=== PATIENT | female | born 1950 | race Caucasian/White ===

== ENCOUNTER 2016-12-24 08:00 | Outpatient (CLI) | payer MEDICARE ==
[2016-12-24 19:31] LABS: BUN - BLOOD UREA NITROGEN 18 mg/dL (6-20); CALCIUM 9.2 mg/dL (8.5-10.3); CARBON DIOXIDE - CO2 27 mmol/L (21-32); CHLORIDE 104 mmol/L (101-111); CHOL/HDL RATIO 4.4 (<4.4); CHOLESTEROL 200 mg/dL; CREATININE 0.6 mg/dL (0.4-1.0); GFR - MDRD 100 (>89); GLUCOSE 88 mg/dL (70-100); HDL CHOLESTEROL 45 mg/dL; LDL/HDL RATIO 2.7 (<4.4); POTASSIUM 3.9 mmol/L (3.5-5.0); SODIUM 139 mmol/L (135-145); TRIGLYCERIDES 162 mg/dL; VLDL CHOLESTEROL 32 mg/dL
== END 2016-12-24 08:01 ==
LOC: LAB.F 08:00
PROVIDERS: ATTEND Physician Assistant
DX: I50.9 Heart failure, unspecified (principal); E78.5 Hyperlipidemia, unspecified; I35.0 Nonrheumatic aortic (valve) stenosis
CPT/HCPCS: 36415; 80048; 80061; 83880

== ENCOUNTER 2017-04-25 08:14 | Outpatient (CLI) | payer MEDICARE ==
[2017-04-25 11:24] LABS: CALCIUM 9.5 mg/dL (8.5-10.3); CREATININE 0.7 mg/dL (0.4-1.0)
== END 2017-04-25 08:15 | disposition home or self-care (01) ==
LOC: LAB.F 08:14
PROVIDERS: ATTEND Physician Assistant
DX: I50.9 Heart failure, unspecified (principal)
CPT/HCPCS: 36415; 80048; 83880

== ENCOUNTER 2017-07-29 15:26 | Emergency (ER) | payer MEDICARE ==
[2017-07-29 15:39] VITALS: BP 165/90
--- NOTE | 2017-07-29 16:44 | ED Physician Documentation ---
PD HPI DYSPNEA - Stated complaint Stated Complaint: SOA - Chief complaint Chief Complaint: Resp - History obtained from History obtained from: Patient - History of Present Illness Timing - onset: How many days ago (several) Timing - onset during: Light activity Timing - duration: Days Timing - details: Gradual onset, Still present Inciting event(s): URI (cough, congestion, sputum production and feeling malaise ). No: Out of meds Worsened by: Exertion, Coughing. No: Laying flat Associated symptoms: Fever, Cough, Wheezing. No: Hemoptysis, Chest pain / discomfort, Palpitations, Bilateral edema Similar symptoms before: Diagnosis (has had CHF and pneumonia in the past.) Recently seen: Not recently seen Review of Systems Constitutional: reports: Fever, Chills, Myalgias Nose: reports: Congestion. denies: Rhinorrhea / runny nose Throat: denies: Sore throat Cardiac: denies: Chest pain / pressure Respiratory: reports: Dyspnea, Cough, Wheezing GI: reports: Nausea. denies: Abdominal Pain, Vomiting, Diarrhea : denies: Dysuria, Frequency Skin: denies: Rash, Lesions Musculoskeletal: denies: Extremity swelling Neurologic: reports: Generalized weakness. 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 : None HEENT: None, Chronic vision loss Psych: None Musculoskeletal: None Derm: None - Past Surgical History Past Surgical History: Yes - Present Medications Home Medications: Ambulatory Orders Medication Instructions Recorded Confirmed Albuterol Sulf [Ventolin Hfa 1 - 2 puffs INH Q4HR PRN #1 inhaler 07/29/17 Inhaler] Azithromycin [Zithromax] 250 mg PO DAILY #6 tablet 07/29/17 Benzonatate [Tessalon] 100 mg PO TID PRN #25 capsule 07/29/17 Dexamethasone [Decadron] 4 mg PO DAILY #5 tablet 07/29/17 Furosemide [Lasix] 20 mg PO DAILY 07/29/17 07/29/17 Potassium Chloride 30 meq PO DAILY 07/29/17 07/29/17 - Allergies Allergies/Adverse Reactions: Allergies Allergy/AdvReac Type Severity Reaction Status Date / Time Sulfa (Sulfonamide Allergy Unknown Verified 01/26/16 12:24 Antibiotics) - Social History Does the pt smoke?: No Smoking Status: Never smoker Does the pt drink ETOH?: No Does the pt have substance abuse?: No - Family History Family history: reports: Non contributory - Immunizations Immunizations are current?: Yes - POLST Patient has POLST: No PD ED PE NORMAL - Vitals Vital signs reviewed: Yes - General General: Alert and oriented X 3, No acute distress, Well developed/nourished - HEENT HEENT: Ears normal, Pharynx benign - Neck Neck: Supple, no meningeal sign, No adenopathy - Cardiac Cardiac: RRR, No murmur - Respiratory Respiratory: No: Clear bilaterally (some diffuse wheezing. Mild coarse sounds perihilar. No fine rales heard. ) - Abdomen Abdomen: Soft, Non tender - Back Back: No CVA TTP - Derm Derm: Normal color, Warm and dry - Extremities Extremities: No tenderness to palpate, Normal ROM s pain, No calf tenderness / cord - Neuro Neuro: Alert and oriented X 3, No motor deficit, Normal speech Results - Vitals Vitals: Oxygen O2 Source Room air - Labs Labs: Laboratory Tests 07/29/17 07/29/17 07/29/17 16:45 17:32 17:32 WBC 10.3 RBC 5.45 H Hgb 15.7 Hct 45.8 MCV 84.1 MCH 28.8 MCHC 34.2 RDW 12.5 Plt Count 294 MPV 7.6 L Neut # 6.2 Lymph # 2.8 Yates # 0.7 Eos # 0.5 Baso # 0.1 Absolute Nucleated RBC 0.00 Nucleated RBCs 0.0 Sodium 136 Potassium 4.3 Chloride 100 L Carbon Dioxide 27 Anion Gap 9.0 BUN 17 Creatinine 0.6 Estimated GFR (MDRD) 100 Glucose 116 H Calcium 9.5 Magnesium 2.1 Total Bilirubin 0.8 AST 25 ALT 21 Alkaline Phosphatase 78 B-Natriuretic Peptide Total Protein 8.2 Albumin 5.3 Globulin 2.9 Albumin/Globulin Ratio 1.8 Lipase 40 Urine Color YELLOW Urine Clarity CLEAR Urine pH 5.5 Ur Specific [place] 1.020 Urine Protein NEGATIVE Urine Glucose (UA) NEGATIVE Urine Ketones NEGATIVE Urine Occult Blood NEGATIVE Urine Nitrite NEGATIVE Urine Bilirubin NEGATIVE Urine Urobilinogen 0.2 (NORMAL) Ur Leukocyte Esterase NEGATIVE Ur Microscopic Review NOT INDICATED Urine Culture Comments NOT INDICATED 07/29/17 17:32 WBC RBC Hgb Hct MCV MCH MCHC RDW Plt Count MPV Neut # Lymph # Yates # Eos # Baso # Absolute Nucleated RBC Nucleated RBCs Sodium Potassium Chloride Carbon Dioxide Anion Gap BUN Creatinine Estimated GFR (MDRD) Glucose Calcium Magnesium Total Bilirubin AST ALT Alkaline Phosphatase B-Natriuretic Peptide 130 H Total Protein Albumin Globulin Albumin/Globulin Ratio Lipase Urine Color Urine Clarity Urine pH Ur Specific [place] Urine Protein Urine Glucose (UA) Urine Ketones Urine Occult Blood Urine Nitrite Urine Bilirubin Urine Urobilinogen Ur Leukocyte Esterase Ur Microscopic Review Urine Culture Comments - Rads (name of study) chest Radiology: Prelim report reviewed (subtle infiltrate on left, with underlying lung disease) PD MEDICAL DECISION MAKING - ED course Complexity details: reviewed results, considered differential (sounds pneumonic and does not appear like CHF. ), d/w patient Departure - Departure Disposition: 01 Home, Self Care Clinical Impression: Dyspnea Qualifiers: Dyspnea type: dyspnea on exertion Qualified Code(s): R06.09 - Other forms of dyspnea Pneumonia Qualifiers: Pneumonia type: due to unspecified organism Laterality: left Lung location: upper lobe of lung Qualified Code(s): J18.1 - Lobar pneumonia, unspecified organism Condition: Stable Record reviewed to determine appropriate education?: Yes Instructions: ED Pneumonia Adult, ED Dyspnea Shortness of Breath Follow-Up: Ninoska Rasheed PA-C [Primary Care Provider] - Prescriptions: Albuterol Sulf [Ventolin Hfa Inhaler] 1 - 2 puffs INH Q4HR PRN #1 inhaler PRN Reason: Shortness Of Air/Wheezing Dexamethasone [Decadron] 4 mg PO DAILY #5 tablet Benzonatate [Tessalon] 100 mg PO TID PRN #25 capsule PRN Reason: Cough Azithromycin [Zithromax] 250 mg PO DAILY #6 tablet Comments: Use the albuterol inhaler 2 puffs 4 times a day for the next 7-10 days. Decadron daily for 5 more days for bronchial inflammation. Zithromax antibiotic for bronchitis/pneumonia. Use Tessalon if needed for cough. Drink lots of fluids. Continue with usual medicines. There does not appear to be any signs of congestive failure at this time. It seems to be all respiratory and infectious. Discharge Date/Time: 07/29/17 18:23
[2017-07-29 16:58] LABS: BILIRUBIN,URINE NEGATIVE (NEGATIVE); PH,URINE 5.5 PH (5.0-7.5); UA CHARGE (STRIP ONLY) YES; UR CULTURE IF IND NOT INDICATED
[2017-07-29] MEDS ORDERED: ALBUTEROL NEB 2.5 MG/3 ML INH STA (17:07)
[2017-07-29] MEDS ORDERED: DEXAMETHASONE 10 MG/ML VIAL PO STA (17:07)
[2017-07-29] MEDS ORDERED: DEXAMETHASONE 10 MG/ML VIAL ONE (17:15)
[2017-07-29] MEDS ORDERED: CHERRY SYRUP 10 ML UDC PO ONE (17:16)
[2017-07-29] MEDS ORDERED: ALBUTEROL NEB 2.5 MG/3 ML INH ONE (17:38)
--- NOTE | 2017-07-29 17:40 | XRAY Preliminary Report ---
Exam: XR Chest 2 View PA/LAT IMPRESSION: Possible subtle infiltrate on the left, with underlying chronic lung disease. [facility] SITE ID: [id number]
[2017-07-29 17:42] LABS: BASOPHILS # (AUTO) 0.1 10^3/uL (0.0-0.1); BASOPHILS % (AUTO) 1.1 %; EOSINOPHILS # (AUTO) 0.5 10^3/uL (0.0-0.7); EOSINOPHILS % (AUTO) 4.6 %; HCT - HEMATOCRIT 45.8 % (37.0-47.0); HGB - HEMOGLOBIN 15.7 g/dL (12.0-16.0); LYMPHOCYTES # (AUTO) 2.8 10^3/uL (1.5-3.5); LYMPHOCYTES % (AUTO) 27.5 %; MEAN CORPUSCULAR HEMOGLOBIN 28.8 pg (27.0-31.0); MEAN CORPUSCULAR HGB CONC 34.2 g/dL (32.0-36.0); MEAN CORPUSCULAR VOLUME 84.1 fL (81.0-99.0); MEAN PLATELET VOLUME 7.6 fL (7.9-10.8); MONOCYTES # (AUTO) 0.7 10^3/uL (0.0-1.0); MONOCYTES % (AUTO) 6.8 %; NEUTROPHILS # (AUTO) 6.2 10^3/uL (1.5-6.6); RED BLOOD COUNT 5.45 10^6/uL (4.20-5.40); RED CELL DISTRIBUTION WIDTH 12.5 % (12.0-15.0); UNCORRECTED WHITE BLOOD COUNT 10.3 x10^3/uL; WHITE BLOOD COUNT 10.3 x10^3/uL (4.8-10.8)
--- NOTE | 2017-07-29 17:43 | XRAY Report ---
EXAM: CHEST RADIOGRAPHY EXAM DATE: 07/29/2017 05:24 PM. CLINICAL HISTORY: Cough and wheezing/dyspnea for 1-2 weeks. COMPARISON: 04/20/2016. TECHNIQUE: 2 views. FINDINGS: Lungs/Pleura: Hyperexpanded with flattened diaphragm and coarse lung markings typical of COPD. Subtle increased density in left midlung zone may represent an acute infiltrate. No consolidation, effusion , or pneumothorax. Mediastinum: Normal heart size, unchanged. Upper lobe vessels not distended. Other: Scoliosis, degenerative changes. IMPRESSION: Possible subtle infiltrate on the left, with underlying chronic lung disease. [facility] Referring Provider Line: [phone] SITE ID: [id number]
[2017-07-29] MEDS ORDERED: AZITHROMYCIN 250 MG TABLET PO STA (17:50)
[2017-07-29] MEDS ORDERED: BENZONATATE 100 MG CAPSULE PO STA (17:51)
[2017-07-29 17:53] LABS: ALBUMIN/GLOBULIN RATIO 1.8 (1.0-2.2); BILIRUBIN,TOTAL 0.8 mg/dL (0.2-1.0); CALCIUM 9.5 mg/dL (8.5-10.3); CREATININE 0.6 mg/dL (0.4-1.0); MAGNESIUM 2.1 mg/dL (1.7-2.8); POTASSIUM 4.3 mmol/L (3.5-5.0); TOTAL PROTEIN 8.2 g/dL (6.7-8.2)
[2017-07-29] MEDS ORDERED: AZITHROMYCIN 250 MG TABLET PO ONE (18:12)
[2017-07-29] MEDS ORDERED: BENZONATATE 100 MG CAPSULE PO ONE (18:12)
== END 2017-07-29 18:23 | disposition home or self-care (01) ==
LOC: ED 15:26
DX: R06.00 Dyspnea, unspecified (principal); J18.9 Pneumonia, unspecified organism; I10 Essential (primary) hypertension
CPT/HCPCS: 36415; 71020; 80053; 81003; 83690; 83735; 83880; 85025; 94640; 99283; 99284; A9270; J7613; 81001; 87086

== ENCOUNTER 2017-09-26 14:58 | Outpatient (CLI) | payer MEDICARE | END 2017-09-26 14:59 | disposition home or self-care (01) | LOC: RT 14:58 | PROVIDERS: ATTEND Internal Medicine Cardiovascular Disease | DX: I35.0 Nonrheumatic aortic (valve) stenosis (principal) | CPT/HCPCS: 93005 ==

== ENCOUNTER 2017-09-26 15:18 | Outpatient (CLI) | payer MEDICARE ==
[2017-09-26 15:41] LABS: BASOPHILS # (AUTO) 0.1 10^3/uL (0.0-0.1); BASOPHILS % (AUTO) 1.1 %; EOSINOPHILS # (AUTO) 0.3 10^3/uL (0.0-0.7); EOSINOPHILS % (AUTO) 4.2 %; HCT - HEMATOCRIT 42.2 % (37.0-47.0); HGB - HEMOGLOBIN 14.4 g/dL (12.0-16.0); LYMPHOCYTES # (AUTO) 2.4 10^3/uL (1.5-3.5); LYMPHOCYTES % (AUTO) 31.4 %; MEAN CORPUSCULAR HEMOGLOBIN 28.8 pg (27.0-31.0); MEAN CORPUSCULAR HGB CONC 34.1 g/dL (32.0-36.0); MEAN CORPUSCULAR VOLUME 84.4 fL (81.0-99.0); MEAN PLATELET VOLUME 7.3 fL (7.9-10.8); MONOCYTES # (AUTO) 0.5 10^3/uL (0.0-1.0); MONOCYTES % (AUTO) 6.2 %; NEUTROPHILS # (AUTO) 4.4 10^3/uL (1.5-6.6); NEUTROPHILS % (AUTO) 57.1 %; RED CELL DISTRIBUTION WIDTH 12.5 % (12.0-15.0); UNCORRECTED WHITE BLOOD COUNT 7.7 x10^3/uL; WHITE BLOOD COUNT 7.7 x10^3/uL (4.8-10.8)
[2017-09-26 15:53] LABS: INR 1.1 (0.8-1.2)
[2017-09-26 15:54] LABS: ALBUMIN/GLOBULIN RATIO 1.7 (1.0-2.2); BILIRUBIN,TOTAL 0.4 mg/dL (0.2-1.0); CREATININE 0.9 mg/dL (0.4-1.0); TOTAL PROTEIN 7.3 g/dL (6.7-8.2)
== END 2017-09-26 15:19 | disposition home or self-care (01) ==
LOC: LAB 15:18
PROVIDERS: ATTEND Internal Medicine Cardiovascular Disease
DX: Z01.810 Encounter for preprocedural cardiovascular examination (principal); I35.0 Nonrheumatic aortic (valve) stenosis
CPT/HCPCS: 36415; 80053; 85025; 85610; 93005

== ENCOUNTER 2017-10-01 11:05 | Outpatient (CLI) | payer MEDICARE, MEDICAID | END 2017-10-01 11:06 | disposition home or self-care (01) | LOC: DI 11:05 | PROVIDERS: ATTEND Internal Medicine Cardiovascular Disease | DX: I35.0 Nonrheumatic aortic (valve) stenosis (principal); I51.7 Cardiomegaly | CPT/HCPCS: 93306 ==

== ENCOUNTER 2017-12-12 15:26 | Outpatient (CLI) | payer MEDICARE, MEDICAID | END 2017-12-12 15:27 | disposition home or self-care (01) | LOC: LAB 15:26 | PROVIDERS: ATTEND Nurse Practitioner Adult Health | DX: I35.0 Nonrheumatic aortic (valve) stenosis (principal) | CPT/HCPCS: 87640 ==

== ENCOUNTER 2018-01-14 12:47 | Outpatient (CLI) | payer MEDICARE, MEDICAID | END 2018-01-14 12:48 | disposition home or self-care (01) | LOC: DI 12:47 | PROVIDERS: ATTEND Internal Medicine Cardiovascular Disease | DX: I08.3 Combined rheumatic disorders of mitral, aortic and tricuspid valves (principal); I51.7 Cardiomegaly; T82.897A Other specified complication of cardiac prosthetic devices, implants and grafts, initial encounter; I31.3 Pericardial effusion (noninflammatory); J90 Pleural effusion, not elsewhere classified | CPT/HCPCS: 93306 ==

== ENCOUNTER 2018-04-10 14:43 | Emergency (ER) | payer MEDICARE, MEDICAID ==
[2018-04-10 14:51] VITALS: BP 155/71
--- NOTE | 2018-04-10 14:58 | ED Physician Documentation ---
PD HPI HEENT - Stated complaint Stated Complaint: MOUTH SORES - Chief complaint Chief Complaint: Heent - History obtained from History obtained from: Patient - History of Present Illness Timing - onset: Yesterday (She was eating a hamburger yesterday and felt something sharp and cut her tongue and she has had intermittent bleeding ever since. She has specific concerns about this affecting her heart surgery from a few months ago. 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 : None HEENT: None, Chronic vision loss Psych: None Musculoskeletal: None Derm: None - Past Surgical History Past Surgical History: Yes - Present Medications Home Medications: Ambulatory Orders Medication Instructions Recorded Confirmed Albuterol Sulf [Ventolin Hfa 1 - 2 puffs INH Q4HR PRN #1 inhaler 07/29/17 Inhaler] Azithromycin [Zithromax] 250 mg PO DAILY #6 tablet 07/29/17 Benzonatate [Tessalon] 100 mg PO TID PRN #25 capsule 07/29/17 Dexamethasone [Decadron] 4 mg PO DAILY #5 tablet 07/29/17 Furosemide [Lasix] 20 mg PO DAILY 07/29/17 07/29/17 Potassium Chloride 30 meq PO DAILY 07/29/17 07/29/17 - Allergies Allergies/Adverse Reactions: Allergies Allergy/AdvReac Type Severity Reaction Status Date / Time Sulfa (Sulfonamide Allergy Unknown Verified 04/10/18 14:51 Antibiotics) - Social History Does the pt smoke?: No Smoking Status: Never smoker Does the pt drink ETOH?: No Does the pt have substance abuse?: No - Immunizations Immunizations are current?: Yes - POLST Patient has POLST: No PD ED PE NORMAL - Vitals Vital signs reviewed: Yes - General General: Alert and oriented X 3, No acute distress - HEENT HEENT: PERRL, EOMI, Other (There is a single visible tiny laceration on the top right of the tongue with its which is hemostatic. No other visible oropharyngeal lesions.) - Neck Neck: Supple, no meningeal sign, No bony TTP - Cardiac Cardiac: RRR, No murmur - Respiratory Respiratory: No respiratory distress, Clear bilaterally - Abdomen Abdomen: Non tender - Neuro Neuro: Alert and oriented X 3, Normal speech Results - Vitals Vitals: Vital Signs - 24 hr 04/10/18 14:48 Temperature 36.4 C L Heart Rate 83 Respiratory 16 Rate Blood Pressure 155/71 H O2 Saturation 98 Oxygen O2 Source Room air Departure - Departure Disposition: Home, Self Care Clinical Impression: Tongue laceration Qualifiers: Encounter type: initial encounter Qualified Code(s): S01.512A - Laceration without foreign body of oral cavity, initial encounter Condition: Good Record reviewed to determine appropriate education?: Yes Instructions: ED Avulsion Dermal
== END 2018-04-10 15:17 | disposition home or self-care (01) ==
LOC: ED 14:43
DX: S01.512A Laceration without foreign body of oral cavity, initial encounter (principal); W45.8XXA Other foreign body or object entering through skin, initial encounter; I10 Essential (primary) hypertension
CPT/HCPCS: 99282

== ENCOUNTER 2018-04-15 09:50 | Outpatient (CLI) | payer MEDICARE, MEDICAID ==
[2018-04-15 17:49] LABS: BASOPHILS # (AUTO) 0.1 10^3/uL (0.0-0.1); BASOPHILS % (AUTO) 1.2 %; EOSINOPHILS # (AUTO) 0.3 10^3/uL (0.0-0.7); EOSINOPHILS % (AUTO) 4.6 %; HGB - HEMOGLOBIN 12.3 g/dL (12.0-16.0); LYMPHOCYTES # (AUTO) 2.2 10^3/uL (1.5-3.5); LYMPHOCYTES % (AUTO) 40.1 %; MEAN CORPUSCULAR HEMOGLOBIN 27.6 pg (27.0-31.0); MEAN CORPUSCULAR VOLUME 83.5 fL (81.0-99.0); MONOCYTES # (AUTO) 0.3 10^3/uL (0.0-1.0); MONOCYTES % (AUTO) 5.7 %; NEUTROPHILS # (AUTO) 2.7 10^3/uL (1.5-6.6); NEUTROPHILS % (AUTO) 48.4 %; PLT - PLATELET COUNT 411 10^3/uL (130-450); RED BLOOD COUNT 4.46 10^6/uL (4.20-5.40); RED CELL DISTRIBUTION WIDTH 14.3 % (12.0-15.0); WHITE BLOOD COUNT 5.5 x10^3/uL (4.8-10.8)
== END 2018-04-15 09:51 | disposition home or self-care (01) ==
LOC: LAB.F 09:50
PROVIDERS: ATTEND Physician Assistant Medical
DX: Z86.2 Personal history of diseases of the blood and blood-forming organs and certain disorders involving the immune mechanism (principal)
CPT/HCPCS: 36415; 85025

== ENCOUNTER 2018-04-25 09:43 | Outpatient (CLI) | payer MEDICARE, MEDICAID ==
[2018-04-25 10:08] LABS: ALBUMIN 4.2 g/dL (3.2-5.5); ALBUMIN/GLOBULIN RATIO 1.3 (1.0-2.2); BILIRUBIN,TOTAL 0.6 mg/dL (0.2-1.0); CALCIUM 9.5 mg/dL (8.5-10.3); CREATININE 0.7 mg/dL (0.4-1.0); TOTAL PROTEIN 7.4 g/dL (6.7-8.2)
== END 2018-04-25 09:44 | disposition home or self-care (01) ==
LOC: LAB 09:43
PROVIDERS: ATTEND Physician Assistant Medical
DX: Z51.81 Encounter for therapeutic drug level monitoring (principal)
CPT/HCPCS: 36415; 80053

== ENCOUNTER 2018-06-02 10:18 | Outpatient (CLI) | payer MEDICARE, MEDICAID | END 2018-06-02 10:19 | disposition home or self-care (01) | LOC: DI 10:18 | PROVIDERS: ATTEND Internal Medicine Cardiovascular Disease | DX: R93.1 Abnormal findings on diagnostic imaging of heart and coronary circulation (principal); I08.0 Rheumatic disorders of both mitral and aortic valves | CPT/HCPCS: 93306 ==

== ENCOUNTER 2018-09-25 09:49 | Outpatient (CLI) | payer MEDICARE, MEDICAID ==
[2018-09-25 18:52] LABS: ALBUMIN 4.7 g/dL (3.2-5.5); ALKALINE PHOSPHATASE 73 IU/L (42-121); ALT ALANINE AMINOTRANSFERASE 17 IU/L (10-60); AST ASPARTATE AMINOTRANSFERASE 21 IU/L (10-42); BILIRUBIN,TOTAL 0.8 mg/dL (0.2-1.0); BUN - BLOOD UREA NITROGEN 19 mg/dL (6-20); CALCIUM 9.1 mg/dL (8.5-10.3); CARBON DIOXIDE - CO2 26 mmol/L (21-32); CHLORIDE 102 mmol/L (101-111); CHOL/HDL RATIO 4.4 (<4.4); CHOLESTEROL 217 mg/dL; CREATININE 0.6 mg/dL (0.4-1.0); GFR - MDRD 99 (>89); GLUCOSE 95 mg/dL (70-100); HDL CHOLESTEROL 49 mg/dL; LDL CHOLESTEROL,CALCULATED 135 mg/dL; LDL/HDL RATIO 2.8 (<4.4); SODIUM 135 mmol/L (135-145); TOTAL PROTEIN 7.1 g/dL (6.7-8.2); VLDL CHOLESTEROL 33 mg/dL
== END 2018-09-25 09:50 | disposition home or self-care (01) ==
LOC: LAB.F 09:49
PROVIDERS: ATTEND Physician Assistant Medical
DX: I50.9 Heart failure, unspecified (principal); E78.70 Disorder of bile acid and cholesterol metabolism, unspecified
CPT/HCPCS: 36415; 80053; 80061; 83721

== ENCOUNTER 2019-03-20 15:21 | Outpatient (CLI) | payer MEDICARE, MEDICAID | END 2019-03-20 15:22 | disposition home or self-care (01) | LOC: LAB.F 15:21 | PROVIDERS: ATTEND Physician Assistant Medical | DX: R53.83 Other fatigue (principal) | CPT/HCPCS: 36415; 84443 ==

== ENCOUNTER 2019-03-26 10:08 | Outpatient (CLI) | payer MEDICARE, MEDICAID ==
--- NOTE | 2019-03-26 13:54 | XRAY Report ---
Reason: HIP PAIN JOINT Procedure Date: 03/26/2019 Accession Number: [id number] / [id number] Procedure: XR - Hips 2V BILAT CPT Code: FULL RESULT: EXAM: BILATERAL HIP RADIOGRAPHY EXAM DATE: 03/26/2019 10:14 AM. CLINICAL HISTORY: Hip joint pain. COMPARISON: None. TECHNIQUE: 2 views each. FINDINGS: Bones: Normal. No fractures or bone lesion. Right Hip: Normal. No dislocation. The hip joint space is preserved. Left Hip: Normal. No dislocation. The hip joint space is preserved. Soft Tissues: Normal. No soft tissue swelling. IMPRESSION: Normal bilateral hip radiography. [facility]
== END 2019-03-26 10:09 | disposition home or self-care (01) ==
LOC: DI 10:08
PROVIDERS: ATTEND Physician Assistant Medical
DX: M25.559 Pain in unspecified hip (principal)
CPT/HCPCS: 73521

== ENCOUNTER 2019-12-31 13:16 | Emergency (ER) | payer MEDICARE, MEDICAID ==
--- NOTE | 2019-12-31 14:52 | ED Physician Documentation ---
History of Present Illness - Stated complaint Stated Complaint: MOUTH PX - Chief complaint Chief Complaint: Heent - History obtained from History obtained from: Patient, Family - History of Present Illness Timing: How many days ago (4) - Additonal information Additional information: Patient comes emergency department complaining of right throat/neck pain that is been going on for the last 4 days. Patient actually has had chronic right throat and neck pain for the last year and a half since having Replacement surgery. She states that after the surgery was done, she woke up hoarse and has had trouble with swallowing and speaking ever since. Her significant other states that no one has ever been able to figure out for sure why this is, though they thought she might of had a stroke during surgery. However, the patient never had any other symptoms with this. Patient states that over the last year and a half, her throat pain has come and gone. She states however that this seems to be worse than usual. She denies any fevers or chills. No rhinorrhea or cough. She has a history of intermittent acid reflux but this is not been bothering her recently. She states that she did not sleep very well last night because of the pain. Patient states that she is supposed to follow-up with ENT, but she has not been able to get a referral from her primary care physician yet. At this point in time, she is expected to be seen at the end of February by ENT.The only other history the patient can think of is that some months ago, she accidentally swallowed some glass and at that time, had medical evaluation.She was found to have a piece of glass in her stomach and was told that this would pass on its own. She wonders if a piece of glass got lodged in her throat and has never quite cleared since. Patient denies any difficulty breathing. No gagging.She does not feel ill. No other complaints at this time. 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 : None HEENT: None, Chronic vision loss Psych: None Musculoskeletal: None Derm: None - Past Surgical History Past Surgical History: Yes - Present Medications Home Medications: Ambulatory Orders Medication Instructions Recorded Confirmed Albuterol Sulf [Ventolin Hfa 1 - 2 puffs INH Q4HR PRN #1 inhaler 07/29/17 Inhaler] Azithromycin [Zithromax] 250 mg PO DAILY #6 tablet 07/29/17 Benzonatate [Tessalon] 100 mg PO TID PRN #25 capsule 07/29/17 Furosemide [Lasix] 20 mg PO DAILY 07/29/17 07/29/17 Potassium Chloride 30 meq PO DAILY 07/29/17 07/29/17 dexAMETHasone [Decadron] 4 mg PO DAILY #5 tablet 07/29/17 Lidocaine HCl [Lidocaine HCl 5 ml MM Q8HR 10 Days #100 ml 12/31/19 Viscous] - Allergies Allergies/Adverse Reactions: Allergies Allergy/AdvReac Type Severity Reaction Status Date / Time Sulfa (Sulfonamide Allergy Unknown Verified 04/10/18 14:51 Antibiotics) - Social History Does the pt smoke?: No Smoking Status: Never smoker Does the pt drink ETOH?: No Does the pt have substance abuse?: No - Immunizations Immunizations are current?: Yes - POLST Patient has POLST: No Results - Vitals Vitals: Vital Signs - 24 hr 12/31/19 12/31/19 13:19 16:17 Temperature 36.5 C 37.1 C Heart Rate 61 68 Respiratory 18 16 Rate Blood Pressure 152/70 H 141/72 H O2 Saturation 97 98 Oxygen O2 Source Room air - Rads (name of study) Soft tissue neck x-ray Radiology: Final report received, Discussed with rads, See rad report (Negative soft tissue neck x-ray.) PD MEDICAL DECISION MAKING - ED course Complexity details: reviewed old records, reviewed results, re-evaluated patient, considered differential, d/w patient, d/w family ED course: I discussed with the patient and her family that at this point in time, she has chronicNeck and throat pain but I do not find evidence of an acute or emergent cause of her pain. She may have a viral illness that has caused an aphthous ulcer further down in her throat where he cannot see; however, it is not certain because I cannot see down that far. She has mild lymphadenopathy of the right neck, but this is not tender. At this point in time, I have discussed home management of the symptoms, as well as the need for follow-up with ENT, who can do a scope and get a better idea of what is going on. I do not feel she needs emergent ENT consultation in the emergency department. Patient seems stable for discharge home.We have discussed the usual indications for return. Departure - Departure Disposition: 01 Home, Self Care Clinical Impression: Sore throat, Odynophagia Condition: Good Instructions: Sore Throat Prescriptions: Lidocaine HCl [Lidocaine HCl Viscous] 5 ml MM Q8HR 10 Days #100 ml Comments: Your soft tissue neck x-ray was negative. It is not clear why you continue to have pain in your throat and neck. However, this is something that will need to be further evaluated by the ear nose throat specialist. Please continue to work with your primary care physician to get insurance authorization for your follow- up. In the meantime, eat soft foods and take the medication, as prescribed, and as needed. Discharge Date/Time: 12/31/19 16:19
--- NOTE | 2019-12-31 15:37 | XRAY Report ---
Reason: neck pain Procedure Date: 12/31/2019 Accession Number: [id number] / [id number] Procedure: XR - Neck Soft Tissue CPT Code: Final Report FULL RESULT: EXAM: SOFT TISSUE NECK RADIOGRAPHY EXAM DATE: 12/31/2019 03:17 PM. CLINICAL HISTORY: Neck pain. Patient reports neck pain/trouble swallowing for 4 days. COMPARISONS: None. TECHNIQUE: 2 views. FINDINGS: Soft Tissues: No prevertebral soft tissue swelling. The epiglottis and aryepiglottic folds are unremarkable. No tonsillar or adenoidal enlargement. No radiopaque foreign body. Regional Skeleton: Multilevel degenerative changes of the cervical spine are seen including loss of disk space height, facet arthropathy and lateral mass hypertrophy. Prior median sternotomy is noted. Other: The visualized lung apices are clear. IMPRESSION: No unexpected radiopaque foreign body of soft tissues. No unexpected soft tissue gas. Radiographically normal soft tissues. [facility]
[2019-12-31 16:17] VITALS: BP 141/72
== END 2019-12-31 16:19 | disposition home or self-care (01) ==
LOC: ED 13:16
DX: J02.9 Acute pharyngitis, unspecified (principal); R13.10 Dysphagia, unspecified; I10 Essential (primary) hypertension
CPT/HCPCS: 70360; 99281; 99283

== ENCOUNTER 2020-12-20 13:42 | Outpatient (CLI) | payer MEDICARE, MEDICAID ==
--- NOTE | 2020-12-20 14:48 | DEXA Report ---
PROCEDURE: Dexa Spine and/or Hip INDICATIONS: POST MENOPAUSAL TECHNIQUE: Dual energy x-ray absorptiometry (DXA) was performed on a [place]. com. cn System. Regions measur ed are the AP Spine, femoral neck, and if needed forearm. COMPARISON: None. FINDINGS: Lumbar Spine: Bone Mineral Density 0.976 g/cm/cm,T score -1.7, osteopenia Left Femoral Neck: Bone Mineral Density 0.673 g/cm/cm, T score -2.7, osteoporosis (T score greater or equal to -1.0: NORMAL) (T score from -1.1 to -2.4: OSTEOPENIA) (T score less than or equal to -2.5 to: OSTEOPOROSIS) Impression: OSTEOPOROSIS. Patient is at high risk for fracture. Patients with diagnosis of osteoporosis or osteopenia should have regular bone mineral density assess ment. For those eligible for Medicare, routine testing is allowed once every 2 years. Testing frequ ency can be increased for patients who have rapidly progressing disease or for those who are receivin g medical therapy to restore bone mass. Reviewed by: Jonathan Melton MD on 12/20/2020 2:46 PM PST Approved by: Jonathan Melton MD on 12/20/2020 2:46 PM PST Station ID: [id number]
== END 2020-12-20 13:43 | disposition home or self-care (01) ==
LOC: DI 13:42
PROVIDERS: ATTEND Registered Nurse
DX: M85.89 Other specified disorders of bone density and structure, multiple sites (principal); Z78.0 Asymptomatic menopausal state

== ENCOUNTER 2021-01-17 11:05 | Outpatient (CLI) | payer MEDICARE, MEDICAID ==
[2021-01-17 11:51] LABS: BASOPHILS % (AUTO) 0.6 %; EOSINOPHILS # (AUTO) 0.1 10^3/uL (0.0-0.7); EOSINOPHILS % (AUTO) 1.9 %; HCT - HEMATOCRIT 35.5 % (37.0-47.0); HGB - HEMOGLOBIN 11.9 g/dL (12.0-16.0); LYMPHOCYTES # (AUTO) 0.8 10^3/uL (1.5-3.5); LYMPHOCYTES % (AUTO) 24.5 %; MEAN CORPUSCULAR HEMOGLOBIN 30.7 pg (27.0-31.0); MEAN CORPUSCULAR HGB CONC 33.5 g/dL (32.0-36.0); MEAN CORPUSCULAR VOLUME 91.5 fL (81.0-99.0); MEAN PLATELET VOLUME 8.5 fL (7.9-10.8); MONOCYTES # (AUTO) 0.3 10^3/uL (0.0-1.0); MONOCYTES % (AUTO) 9.7 %; PLT - PLATELET COUNT 183 10^3/uL (130-450); RED BLOOD COUNT 3.88 10^6/uL (4.20-5.40); RED CELL DISTRIBUTION WIDTH 13.2 % (12.0-15.0); WHITE BLOOD COUNT 3.2 x10^3/uL (4.8-10.8)
[2021-01-17 12:07] LABS: ALBUMIN 5.2 g/dL (3.2-5.5); ALBUMIN/GLOBULIN RATIO 2.2 (1.0-2.2); ALKALINE PHOSPHATASE 54 IU/L (42-121); ALT ALANINE AMINOTRANSFERASE 30 IU/L (10-60); AST ASPARTATE AMINOTRANSFERASE 29 IU/L (10-42); BUN - BLOOD UREA NITROGEN 20 mg/dL (6-20); CALCIUM 9.9 mg/dL (8.5-10.3); CARBON DIOXIDE - CO2 27 mmol/L (21-32); CHLORIDE 95 mmol/L (101-111); CHOL/HDL RATIO 3.4 (<4.4); CHOLESTEROL 216 mg/dL; CREATININE 0.6 mg/dL (0.4-1.0); GFR - MDRD 99 (>89); GLUCOSE 101 mg/dL (70-100); HDL CHOLESTEROL 64 mg/dL; LDL CHOLESTEROL,CALCULATED 123 mg/dL; LDL/HDL RATIO 1.9 (<4.4); POTASSIUM 3.9 mmol/L (3.5-5.0); SODIUM 135 mmol/L (135-145); TOTAL PROTEIN 7.6 g/dL (6.7-8.2); TRIGLYCERIDES 145 mg/dL; VLDL CHOLESTEROL 29 mg/dL
[2021-01-17 12:19] LABS: THYROID STIMULATING HORMONE 7.49 uIU/mL (0.34-5.60)
[2021-01-17 12:54] LABS: FREE T4 (FREE THYROXINE) 0.87 ng/dL (0.58-1.64)
== END 2021-01-17 11:06 | disposition home or self-care (01) ==
LOC: LAB 11:05
PROVIDERS: ATTEND Registered Nurse
DX: C01 Malignant neoplasm of base of tongue (principal)
CPT/HCPCS: 36415; 80053; 80061; 83721; 84439; 84443; 85025

== ENCOUNTER 2021-01-30 16:39 | Outpatient (CLI) | payer MEDICARE, MEDICAID | END 2021-01-30 16:40 | disposition home or self-care (01) | LOC: COV 16:39 | PROVIDERS: ATTEND Specialist | DX: Z01.812 Encounter for preprocedural laboratory examination (principal); C01 Malignant neoplasm of base of tongue; Z20.822 Contact with and (suspected) exposure to COVID-19 ==

== ENCOUNTER 2021-02-14 10:12 | Outpatient (CLI) | payer MEDICARE, MEDICAID ==
--- NOTE | 2021-02-15 09:11 | Ultrasound Report ---
PROCEDURE: Head or Neck Soft Tissue INDICATIONS: NODULE IN THYROID TECHNIQUE: Real-time scanning was performed of the thyroid gland, with image documentation. COMPARISON: None. Correlation made to report of the PET CT 10/19/2020 FINDINGS: Right: Thyroid lobe measures 3.8 x 2.0 x 1.5 cm, and is heterogeneous in echotexture. Left: Thyroid lobe measures 3.6 x 1.4 x 1.5 cm, and is heterogeneous in echotexture. Isthmus: 3.6 mm thick. Nodule number: One Location: Left mid Size: 0.8 x 0.5 x 0.5 cm. Composition: Solid Echogenicity: Hyperechoic Shape: wider than tall. Margins: Smooth Echogenic foci: None Total points: 3 ACR TI-RADS category: Mildly suspicious Nodule number: Two Location: Left inferior Size: 1.2 x 1.0 x 1.0 cm. Composition: Solid Echogenicity: Hyperechoic Shape: wider than tall. Margins: Smooth Echogenic foci: None Total points: 3 ACR TI-RADS category: Mildly suspicious IMPRESSION: 1. Heterogeneous right thyroid lobe without focal nodule to explain FDG uptake. 2. 2 echogenic solid nodules in the left thyroid lobe are only mildly suspicious. Given their small s ize, no further follow-up is needed. ACR TI-RADS definitions and recommendations: TI-RADS 1 (benign): 0 points. FNA not needed. TI-RADS 2 (not suspicious): 2 points. FNA not needed. TI-RADS 3 (mildly suspicious): 3 points. ? FNA if 2.5 cm or larger, follow up if 1.5 cm or larger (at 1, 3, and 5 years). TI-RADS 4 (moderately suspicious): 4-6 points. ? FNA if 1.5 cm or larger, follow up if 1 cm or larger (at 1, 2, 3, and 5 years). TI-RADS 5 (highly suspicious): 7 points or more. ? FNA if 1 cm or larger, follow up if 0.5 cm or larger (every year for 5 years). Reviewed by: Eri Dumont MD on 02/15/2021 8:09 AM [facility] Approved by: Eri Dumont MD on 02/15/2021 8:09 AM [facility] Station ID: [id number]
== END 2021-02-14 10:13 | disposition home or self-care (01) ==
LOC: DI 10:12
PROVIDERS: ATTEND Specialist
DX: E04.2 Nontoxic multinodular goiter (principal)

== ENCOUNTER 2021-05-05 14:39 | Outpatient (CLI) | payer MEDICARE, MEDICAID | END 2021-05-05 14:40 | disposition home or self-care (01) | LOC: COV 14:39 | PROVIDERS: ATTEND Specialist | DX: Z01.812 Encounter for preprocedural laboratory examination (principal); C01 Malignant neoplasm of base of tongue; Z20.822 Contact with and (suspected) exposure to COVID-19 ==

== ENCOUNTER 2021-06-01 11:00 | Outpatient (CLI) | payer MEDICARE, MEDICAID | END 2021-06-01 23:59 | disposition home or self-care (01) | LOC: COV 11:00 | PROVIDERS: ATTEND Specialist | DX: Z01.812 Encounter for preprocedural laboratory examination (principal); C01 Malignant neoplasm of base of tongue; Z20.822 Contact with and (suspected) exposure to COVID-19 ==

== ENCOUNTER 2022-03-02 10:58 | Outpatient (CLI) | payer MEDICARE, MEDICAID ==
[2022-03-02 11:38] LABS: T4 (THYROXINE) 8.06 ug/dL (6.09-12.23)
[2022-03-02 11:41] LABS: THYROID STIMULATING HORMONE 1.04 uIU/mL (0.34-5.60)
== END 2022-03-02 10:59 | disposition home or self-care (01) ==
LOC: LAB 10:58
PROVIDERS: ATTEND Registered Nurse
DX: R94.6 Abnormal results of thyroid function studies (principal)
CPT/HCPCS: 36415; 84436; 84443; 84480

== ENCOUNTER 2022-04-06 08:00 | Outpatient (CLI) | payer MEDICARE, MEDICAID ==
[2022-04-06 20:49] LABS: T4 (THYROXINE) 6.94 ug/dL (6.09-12.23)
[2022-04-06 20:53] LABS: THYROID STIMULATING HORMONE 0.43 uIU/mL (0.34-5.60)
== END 2022-04-06 23:59 | disposition home or self-care (01) ==
LOC: LAB.S 08:00
PROVIDERS: ATTEND Registered Nurse
DX: E03.9 Hypothyroidism, unspecified (principal)
CPT/HCPCS: 36415; 84436; 84443; 84480

== ENCOUNTER 2023-01-20 10:53 | Outpatient (CLI) | payer MEDICARE, MEDICAID | END 2023-01-20 23:59 | disposition critical access hospital (66) | LOC: EMS 10:53 | DX: M54.50 Low back pain, unspecified (principal); W18.30XA Fall on same level, unspecified, initial encounter; R26.81 Unsteadiness on feet | CPT/HCPCS: A0425; A0429 ==

== ENCOUNTER 2023-01-20 11:27 | Emergency (ER) | payer MEDICARE, MEDICAID ==
[2023-01-20] MEDS ORDERED: KETOROLAC 15 MG/ML VIAL IM STA (11:41)
[2023-01-20] MEDS ORDERED: HYDROmorphone 0.5 MG/0.5 ML SYRINGE IM STA (11:41)
--- NOTE | 2023-01-20 12:32 | CT Report ---
PROCEDURE: LUMBAR SPINE WO INDICATIONS: fall/pain TECHNIQUE: Noncontrast 3 mm thick sections acquired from the T12 level to the sacrum. Sagittal and coronal refo rmats were constructed. For radiation dose reduction, the following was used: automated exposure co ntrol, adjustment of mA and/or kV according to patient size. COMPARISON: None FINDINGS: Image quality: Good Bones: Trace retrolisthesis of L1 on L2. Mild endplate deformities may be from degenerative disc dise ase. Mild to moderate degenerative changes. Vertebral body heights are well-maintained. No traumatic malalignment. There is leftward spinal curvature. Soft tissues: Punctate right lower pole nonobstructing nephrolith. No retroperitoneal hematoma identi fied. Intra-abdominal findings are not well evaluated on this study. 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 IMPRESSION: No fracture or traumatic subluxation of the lumbar spine. Mild to moderate degenerative changes. If t here is high concern for further derangement, consider MRI evaluation. Reviewed by: Dany Lynne MD on 01/20/2023 12:31 PM PDT Approved by: Dany Lynne MD on 01/20/2023 12:31 PM PDT Station ID: [id number]
--- NOTE | 2023-01-20 12:58 | ED Physician Documentation ---
History of Present Illness - Stated complaint Stated Complaint: BACK PAIN - Chief complaint Chief Complaint: Back Pain - History obtained from History obtained from: Patient, EMS - Additonal information Additional information: The patient is brought to the emergency department by EMS for chief complaint of low back/sacral pain after a ground-level fall about a week ago. The patient states she lost her balance and fell backwards against the wall, hitting her head and then sliding down and sitting down hard on her bottom. She states it hurt, but she has been getting around okay since. However, she became concerned because the pain in her sacral area has persisted and finally, her roommate/caregiver sent her to the emergency department. The patient denies any other injuries. No neck pain. She did not lose consciousness. She denies any focal neurologic deficits. She has chronic urinary incontinence which seems a little worse since the fall. The patient has history of throat/tongue cancer and has some difficulty with articulation, though she is mentally clear at baseline. PD PAST MEDICAL HISTORY - Past Medical History Past Medical History: Yes Cardiovascular: Hypertension Respiratory: None, Shortness of breath Endocrine/Autoimmune: None GI: None [employer]: None : None HEENT: None, Chronic vision loss Psych: None Musculoskeletal: None Derm: None - Past Surgical History Past Surgical History: Yes Cardiovascular: Valve replacement - Present Medications Home Medications: Ambulatory Orders Medication Instructions Recorded Confirmed Ascorbic Acid [Vitamin C] 2,000 mg PO DAILY 03/14/20 03/14/20 Aspirin [Adult Aspirin Regimen] 81 mg PO DAILY 03/14/20 03/14/20 Furosemide 40 mg PO DAILY 03/14/20 03/14/20 Metoprolol Tartrate 50 mg PO DAILY 03/14/20 03/14/20 Mv-Mn/Folic AC/Calcium/Vit K1 1 tab PO DAILY 03/14/20 03/14/20 [Women's 50 Plus Multivit Tab] Potassium Chloride 10 meq PO DAILY 03/14/20 03/14/20 amLODIPine [Norvasc] 2.5 mg PO DAILY 03/14/20 03/14/20 - Allergies Allergies/Adverse Reactions: Allergies Allergy/AdvReac Type Severity Reaction Status Date / Time oxycodone [From OxyContin] Allergy Unknown Verified 01/20/23 11:38 Sulfa (Sulfonamide Allergy Unknown Verified 01/20/23 11:38 Antibiotics) - Social History Does the pt smoke?: No Smoking Status: Never smoker Does the pt drink ETOH?: No Does the pt have substance abuse?: No - Immunizations Immunizations are current?: Yes - POLST Patient has POLST: No PD ED PE NORMAL - Vitals Vital signs reviewed: Yes - General General: No acute distress, Well developed/nourished, Other (Grossly oriented and answers questions appropriately. The patient has somewhat unclear speech and communicates partly by computer.) - HEENT HEENT: Atraumatic, PERRL - Neck Neck: Supple, no meningeal sign - Cardiac Cardiac: RRR, No murmur - Respiratory Respiratory: No respiratory distress, Clear bilaterally - Abdomen Abdomen: Soft, Non tender, Non distended - Back Back: Other (Spinal tenderness over approximately the L5-S1 region, and inferiorly. More on the right than the left. No step-off.) - Derm Derm: Warm and dry - Extremities Extremities: No deformity - Neuro Neuro: Alert and oriented X 3 - Psych Psych: Normal mood, Normal affect Results - Vitals Vitals: Vital Signs - 24 hr 01/20/23 01/20/23 11:36 12:53 Temperature 37.1 C Heart Rate 74 65 Respiratory 20 15 Rate Blood Pressure 147/82 H 114/67 O2 Saturation 99 100 Oxygen O2 Source Room air - Rads (name of study) Lumbar spine CT no contrast Relevant Findings:: Final report received, See rad report (No acute findings) PD Medical Decision Making - ED course Complexity details: reviewed results, re-evaluated patient, considered differential, d/w patient ED course: The patient was sent for noncontrast CT of her lumbar spine which was unremarkable. She was treated symptomatically in the ED. I discussed with the patient that she would just have to allow more time for what is likely a lumbosacral contusion to resolve. We have discussed symptomatic management at home and the usual indications for return. Departure - Departure Disposition: 01 Home, Self Care Clinical Impression: Contusion of sacrum Qualifiers: Encounter type: initial encounter Qualified Code(s): S30.0XXA - Contusion of lower back and pelvis, initial encounter Condition: Stable Instructions: ED Low Back Pain Injury Comments: A CT scan has been performed of your low back, inferior tailbone, and no broken or dislocated bones are found. You have most likely bruised your tailbone, which can be quite painful for a few weeks. You may use a donut pillow for sitting to help take the pressure off of your tailbone, and you may take ibuprofen and Tylenol as needed. You may also use heat and ice to help with the discomfort. Please follow-up with your primary care physician as needed.
[2023-01-20 13:47] VITALS: BP 131/67
== END 2023-01-20 13:54 | disposition home or self-care (01) ==
LOC: EDUNIT# → ED 11:27
DX: S30.0XXA Contusion of lower back and pelvis, initial encounter (principal); W18.39XA Other fall on same level, initial encounter
CPT/HCPCS: 72131; 96372; 99283; 99284; J1170

== ENCOUNTER 2023-02-14 13:40 | Outpatient (CLI) | payer MEDICARE, MEDICAID ==
[2023-02-14 13:54] LABS: BASOPHILS % (AUTO) 0.5 %; EOSINOPHILS % (AUTO) 0.8 %; HCT - HEMATOCRIT 36.8 % (37.0-47.0); HGB - HEMOGLOBIN 11.9 g/dL (12.0-16.0); LYMPHOCYTES # (AUTO) 0.6 10^3/uL (1.5-3.5); LYMPHOCYTES % (AUTO) 15.9 %; MEAN CORPUSCULAR HEMOGLOBIN 29.9 pg (27.0-31.0); MEAN CORPUSCULAR HGB CONC 32.3 g/dL (32.0-36.0); MEAN CORPUSCULAR VOLUME 92.5 fL (81.0-99.0); MEAN PLATELET VOLUME 8.9 fL (7.9-10.8); MONOCYTES # (AUTO) 0.3 10^3/uL (0.0-1.0); MONOCYTES % (AUTO) 6.4 %; NEUTROPHILS % (AUTO) 76.1 %; PLT - PLATELET COUNT 179 10^3/uL (130-450); RED BLOOD COUNT 3.98 10^6/uL (4.20-5.40); RED CELL DISTRIBUTION WIDTH 12.6 % (12.0-15.0); WHITE BLOOD COUNT 3.9 x10^3/uL (4.8-10.8)
[2023-02-14 14:16] LABS: ALBUMIN 4.3 g/dL (3.2-5.5); ALKALINE PHOSPHATASE 142 IU/L (42-121); ALT ALANINE AMINOTRANSFERASE 15 IU/L (10-60); AST ASPARTATE AMINOTRANSFERASE 19 IU/L (10-42); BILIRUBIN,TOTAL 0.5 mg/dL (0.2-1.0); BUN - BLOOD UREA NITROGEN 15 mg/dL (6-20); CALCIUM 9.3 mg/dL (8.5-10.3); CARBON DIOXIDE - CO2 30 mmol/L (21-32); CHLORIDE 102 mmol/L (101-111); CHOL/HDL RATIO 2.8 (<4.4); CHOLESTEROL 169 mg/dL; CREATININE 0.5 mg/dL (0.4-1.0); GFR - MDRD 121 (>89); GLUCOSE 96 mg/dL (70-100); HDL CHOLESTEROL 61 mg/dL; LDL CHOLESTEROL,CALCULATED 89 mg/dL; LDL/HDL RATIO 1.5 (<4.4); SODIUM 138 mmol/L (135-145); TOTAL PROTEIN 6.5 g/dL (6.7-8.2); TRIGLYCERIDES 97 mg/dL; VLDL CHOLESTEROL 19 mg/dL
[2023-02-14 14:26] LABS: THYROID STIMULATING HORMONE 0.9 uIU/mL (0.34-5.60)
== END 2023-02-14 13:41 | disposition home or self-care (01) ==
LOC: LAB 13:40
PROVIDERS: ATTEND Registered Nurse
DX: Z79.899 Other long term (current) drug therapy (principal); Z13.220 Encounter for screening for lipoid disorders; R94.6 Abnormal results of thyroid function studies
CPT/HCPCS: 36415; 80053; 80061; 83721; 84443; 85025

== ENCOUNTER 2023-03-05 12:42 | Outpatient (CLI) | payer MEDICARE, MEDICAID ==
--- NOTE | 2023-03-05 17:33 | DEXA Report ---
PROCEDURE: Dexa Spine and/or Hip INDICATIONS: POST MENOPAUSAL TECHNIQUE: Dual energy x-ray absorptiometry (DXA) was performed on a CEYX System. Regions measur ed are the AP Spine, femoral neck, and if needed forearm. COMPARISON: 12/20/2020 FINDINGS: Lumbar Spine: Bone Mineral Density 0.968 g/cm/cm,T score -1.8, osteopenia, change from previous -0.8% Left Femoral Neck: Bone Mineral Density 0.506 g/cm/cm, T score minus 3.8, osteoporosis Left Hip: Bone Mineral Density 0.607 g/cm/cm,T score -3.2, osteoporosis, change from previous -9.8%, significa nt (T score greater or equal to -1.0: NORMAL) (T score from -1.1 to -2.4: OSTEOPENIA) (T score less than or equal to -2.5 to: OSTEOPOROSIS) Impression: 1. Osteoporosis. The patient is at a high-risk of fracture. 2. Significant interval decrease in left hip bone mineral density compared to the prior study. Patients with diagnosis of osteoporosis or osteopenia should have regular bone mineral density assess ment. For those eligible for Medicare, routine testing is allowed once every 2 years. Testing frequ ency can be increased for patients who have rapidly progressing disease or for those who are receivin g medical therapy to restore bone mass. Reviewed by: Eri Dumont MD on 03/05/2023 5:31 PM PDT Approved by: Eri Dumont MD on 03/05/2023 5:31 PM PDT Station ID: [id number]
--- NOTE | 2023-03-05 18:38 | MRI Report ---
PROCEDURE: LUMBAR SPINE WO INDICATIONS: SACRAL BACK PAIN TECHNIQUE: Noncontrast sagittal T1 spin echo and T2 fast echo, sagittal STIR, axial T1 and T2 fast spin echo thr ough the lumbar spine. In cases with scoliosis, additional coronal T2 fast spin echo may be performe d. COMPARISON: None. FINDINGS: Image quality: Excellent. Alignment and Curvature: Convex left lumbar scoliosis Bone Marrow: Marrow is of normal overall signal. No acute vertebral body compression fractures. Spinal Cord: Conus medullaris terminates at the L1 level. Visualized cord demonstrates normal signa l and size. Paraspinous Soft Tissues: No paravertebral masses. T12-L1: Disc height is maintained. No central or foraminal stenosis L1-L2: Disc space narrowing. Circumferential disc bulge present without central stenosis. Moderate bilateral foraminal stenosis L2-L3: Disc space narrowing with degenerative disc bulge and hypertrophic facet jointst. Mild cent ral stenosis. Moderate right and mild left foraminal stenosis L3-L4: Disc height is preserved. Disc bulge results in mild central and moderate right foraminal st enosis L4-L5: Disc height is preserved. Mild hypertrophic facet joints and circumferential disc bulge pres ent. No central or foraminal stenosis L5-S1: Disc height is preserved. Hypertrophic facet joints present. Grade 1 anterior spinal listhes is No central or foraminal stenosis. IMPRESSION: Multilevel degenerative disc disease and arthropathy results in varying degrees of central and forami nal stenosis including moderate right foraminal stenosis at L2-3 and L3-4 Reviewed by: Nolan Regalado MD on 03/05/2023 5:37 PM ELI Approved by: Nolan Regalado MD on 03/05/2023 5:37 PM AKDT Station ID: [id number]
== END 2023-03-05 12:43 | disposition home or self-care (01) ==
LOC: DI 12:42
PROVIDERS: ATTEND Registered Nurse
DX: Z78.0 Asymptomatic menopausal state (principal); M53.3 Sacrococcygeal disorders, not elsewhere classified; M51.36 Other intervertebral disc degeneration, lumbar region; M48.061 Spinal stenosis, lumbar region without neurogenic claudication; M81.0 Age-related osteoporosis without current pathological fracture

== ENCOUNTER 2024-04-23 14:45 | Outpatient (CLI) | payer MEDICARE, MEDICAID ==
[2024-04-23 15:35] LABS: BASOPHILS % (AUTO) 0.7 %; EOSINOPHILS % (AUTO) 0.7 %; HCT - HEMATOCRIT 38.9 % (37.0-47.0); HGB - HEMOGLOBIN 12.6 g/dL (12.0-16.0); LYMPHOCYTES # (AUTO) 0.8 10^3/uL (1.5-3.5); LYMPHOCYTES % (AUTO) 17.6 %; MEAN CORPUSCULAR HEMOGLOBIN 29.4 pg (27.0-31.0); MEAN CORPUSCULAR HGB CONC 32.4 g/dL (32.0-36.0); MEAN CORPUSCULAR VOLUME 90.7 fL (81.0-99.0); MEAN PLATELET VOLUME 9.1 fL (7.9-10.8); MONOCYTES # (AUTO) 0.3 10^3/uL (0.0-1.0); MONOCYTES % (AUTO) 6.9 %; NEUTROPHILS # (AUTO) 3.2 10^3/uL (1.5-6.6); NEUTROPHILS % (AUTO) 73.9 %; PLT - PLATELET COUNT 174 10^3/uL (130-450); RED BLOOD COUNT 4.29 10^6/uL (4.20-5.40); RED CELL DISTRIBUTION WIDTH 12.4 % (12.0-15.0); WHITE BLOOD COUNT 4.3 x10^3/uL (4.8-10.8)
[2024-04-23 15:52] LABS: ALBUMIN 4.6 g/dL (3.2-5.5); ALKALINE PHOSPHATASE 57 IU/L (42-121); ALT ALANINE AMINOTRANSFERASE 10 IU/L (10-60); AST ASPARTATE AMINOTRANSFERASE 18 IU/L (10-42); BILIRUBIN,TOTAL 0.7 mg/dL (0.2-1.0); BUN - BLOOD UREA NITROGEN 16 mg/dL (6-20); CALCIUM 9.7 mg/dL (8.5-10.3); CARBON DIOXIDE - CO2 30 mmol/L (21-32); CHLORIDE 101 mmol/L (101-111); CHOL/HDL RATIO 2.8 (<4.4); CHOLESTEROL 171 mg/dL; CREATININE 0.6 mg/dL (0.6-1.3); GFR - MDRD 98 (>89); GLUCOSE 91 mg/dL (74-104); HDL CHOLESTEROL 61 mg/dL; LDL CHOLESTEROL,CALCULATED 92 mg/dL; LDL/HDL RATIO 1.5 (<4.4); POTASSIUM 4.4 mmol/L (3.5-4.5); SODIUM 137 mmol/L (135-145); TOTAL PROTEIN 6.9 g/dL (6.4-8.9); TRIGLYCERIDES 90 mg/dL (48-352); VLDL CHOLESTEROL 18 mg/dL
[2024-04-23 16:03] LABS: THYROID STIMULATING HORMONE 2.61 uIU/mL (0.34-5.60)
== END 2024-04-23 14:46 | disposition home or self-care (01) ==
LOC: LAB 14:45
PROVIDERS: ATTEND Registered Nurse
DX: I10 Essential (primary) hypertension (principal); E03.9 Hypothyroidism, unspecified; E78.00 Pure hypercholesterolemia, unspecified
CPT/HCPCS: 36415; 80053; 80061; 83721; 84443; 85025